=== PATIENT | female | born 1995 | race Caucasian/White ===

== ENCOUNTER 2020-02-05 07:57 | Observation (INO) | payer MEDICAID, OTHER ==
[~2020-02-05] VITALS: Ht 162.6 cm; Wt 89.4 kg
== END 2020-02-05 09:30 | disposition home or self-care (01) ==
LOC: 8 EST LDRP 07:57
PROVIDERS: ADMIT Obstetrics & Gynecology; ATTEND Obstetrics & Gynecology
DX: O62.9 Abnormality of forces of labor, unspecified (principal); Z3A.38 38 weeks gestation of pregnancy
CPT/HCPCS: 99281; G0378